=== PATIENT | female | born 1975 | race Caucasian/White ===

== ENCOUNTER 2017-01-06 16:42 | Emergency (ER) | payer OTHER ==
[~2017-01-06] VITALS: Wt 81.6 kg
[~2017-01-06 16:42] MED LIST: ADIPEX37.5 MG; BETHANECHOL25 MG PO; BUSPAR5 MG; CARAFATE1 G1 PO; CELEBREX100 MG PO; CITRATE OF1.75 GM/30 PO; CYMBALTA60 MG PO; DARVOCET N 1001 TAB PO; DAYPRO600 M1 PO; DESYREL100 MG PO; DEXILANT60 M1 PO; DEXILANT60 MG PO; DICLOFENAC SOD75 MG PO; EC NAPROSYN500 MG PO; FLEXERIL10 MG PO; FLOMAX0.4 MG PO; GEODON60 MG PO; IMITREX50 MG PO; INDERAL LA80 MG PO; K-DUR20 MEQ PO; K-Dur 20MEQ20 MEQ PO; KEFLEX500 MG PO; LIPITOR20 MG PO; LOMOTIL 0.025 M1 TA1 PO; MAXIDE PO; METHADONE5 MG PO; MOBIC15 MG; MORPHINE SULFAT15 MG PO; MOTRIN800 MG PO; NEURONTIN300 MG PO; NEURONTIN600 MG PO; OXYCONTIN15 MG PO; PERCOCET 325 MG1 TA5 PO; PERCOCET 325 MG1 TA6 PO; PERCOCET 325 MG1 TAB; POTASSIUM20 MEQ PO; PRAVASTATIN SOD40 MG PO; PREVACHOL; REMERON15 MG PO; VISTARIL50 MG PO; WELLBUTRIN SR150 MG; ZOFRAN ODT4 MG SL
[2017-01-06 16:46] VITALS: BP 134/68
== END 2017-01-06 18:28 | disposition home or self-care (01) ==
LOC: ED 16:42
DX: S33.5XXA Sprain of ligaments of lumbar spine, initial encounter (principal); Z88.1 Allergy status to other antibiotic agents; Z79.899 Other long term (current) drug therapy; V89.2XXA Person injured in unspecified motor-vehicle accident, traffic, initial encounter; Y93.89 Activity, other specified; Y92.413 State road as the place of occurrence of the external cause; Y99.9 Unspecified external cause status

== ENCOUNTER 2017-08-29 12:53 | Emergency (ER) | payer OTHER ==
[~2017-08-29] VITALS: Ht 170.1 cm; Wt 90.3 kg
[2017-08-29 13:38] VITALS: BP 118/78
[2017-08-29] MEDS ORDERED: SEPTDS PO (13:51)
== END 2017-08-29 13:39 | disposition home or self-care (01) ==
LOC: ED 12:53
DX: J06.9 Acute upper respiratory infection, unspecified (principal); Z88.1 Allergy status to other antibiotic agents; Z79.899 Other long term (current) drug therapy